=== PATIENT | female | born 1960 | race Caucasian/White ===

== ENCOUNTER 2021-07-15 15:38 | Emergency (ER) | payer OTHER ==
[~2021-07-15] VITALS: Ht 162.6 cm; Wt 81.6 kg
[2021-07-15 15:46] VITALS: BP 190/82
[2021-07-15] MEDS ORDERED: ACETAMINOPHEN ES 500 MG TABLET PO ONE (16:00)
[2021-07-15] MEDS ORDERED: IBUPROFEN 600 MG TABLET PO ONE (16:00)
[2021-07-15] MEDS ORDERED: IBUPROFEN 600 MG TABLET ONE (16:13)
[2021-07-15] MEDS ORDERED: ACETAMINOPHEN ES 500 MG TABLET ONE (16:13)
== END 2021-07-15 16:58 | disposition home or self-care (01) ==
LOC: ER 15:45
DX: M54.12 Radiculopathy, cervical region (principal); I10 Essential (primary) hypertension; K21.9 Gastro-esophageal reflux disease without esophagitis; E11.9 Type 2 diabetes mellitus without complications
CPT/HCPCS: 71045-TC